=== PATIENT | male | born 1995 | race Caucasian/White ===

== ENCOUNTER 2017-09-01 18:55 | Emergency (ER) | payer OTHER ==
[~2017-09-01] VITALS: Ht 180.3 cm; Wt 120.5 kg
[2017-09-01 18:57] VITALS: TEMP 98.2
[2017-09-01 20:01] LABS: BASO # 0.1 (0.0-0.2); BASO % 0.9 % (0.0-2.0); EOS # 0.4 (0.0-0.7); EOS % 5.4 % (0-4.0); GRAN # 4.3 (1.4-6.5); GRAN % 56.4 % (42.2-75.2); HEMATOCRIT 43.7 % (42.0-52.0); HEMOGLOBIN 15.1 g/dl (13.5-18.0); LYMPH # 2.3 (1.2-3.4); LYMPH % 30.1 % (20.0-51.0); MEAN CELL VOLUME 85 fl (80.0-100.0); MEAN CORPUSCULAR HEMOGLOBIN 29 pg (27.0-31.0); MEAN CORPUSCULAR HGB CONC 35 g/dl (33.0-37.0); MEAN PLATELET VOLUME 10.8 fl (7.4-10.4); MONO # 0.5 (0.1-0.6); MONO % 6.4 % (1.7-9.3); PLATELET COUNT 173 K/mm3 (130-400); RED BLOOD COUNT 5.17 M/mm3 (4.20-5.60); REDCELL DISTRIBUTION WIDTH-CV 12.7 % (11.5-14.5)
[2017-09-01 20:11] LABS: ALBUMIN 4.4 gm/dL (3.5-5.0); BILIRUBIN,TOTAL 0.6 mg/dL (0.0-1.0); CALCIUM 8.9 mg/dL (8.4-10.2); CREATININE, serum 0.88 mg/dL (0.66-1.25); TOTAL PROTEIN 8.3 gm/dL (6.4-8.2)
[2017-09-01 20:16] LABS: POTASSIUM 2.9 mmol/L (3.4-5.0)
[2017-09-01 21:45] VITALS: BP 147/82; PULSE 91
== END 2017-09-01 21:45 | disposition home or self-care (01) ==
LOC: COL.ER 18:55
PROVIDERS: Physician Assistant
DX: E87.6 Hypokalemia (principal); E86.0 Dehydration
CPT/HCPCS: J2060; J2405; J3480; J7030